=== PATIENT | female | born 2000 | race Two or more races ===

== ENCOUNTER 2023-05-17 10:57 | Outpatient (CLI) | payer OTHER | END 2023-05-17 11:09 | disposition home or self-care (01) | LOC: RAD 10:57 | PROVIDERS: ATTEND Obstetrics & Gynecology Obstetrics | DX: M99.01 Segmental and somatic dysfunction of cervical region (principal); M99.02 Segmental and somatic dysfunction of thoracic region; M99.03 Segmental and somatic dysfunction of lumbar region; M99.04 Segmental and somatic dysfunction of sacral region; M99.05 Segmental and somatic dysfunction of pelvic region ==

== ENCOUNTER 2023-12-28 15:10 | Outpatient (CLI) | payer OTHER | END 2023-12-28 15:25 | disposition home or self-care (01) | LOC: RAD 15:10 | PROVIDERS: ATTEND Obstetrics & Gynecology Obstetrics | DX: M99.01 Segmental and somatic dysfunction of cervical region (principal); M54.2 Cervicalgia; M54.6 Pain in thoracic spine ==

== ENCOUNTER 2024-02-06 13:03 | Outpatient (CLI) | payer OTHER | END 2024-02-06 13:14 | disposition home or self-care (01) | LOC: SONOGRAMA 13:03 | PROVIDERS: ATTEND Obstetrics & Gynecology | DX: N60.11 Diffuse cystic mastopathy of right breast (principal); N60.12 Diffuse cystic mastopathy of left breast ==